=== PATIENT | female | born 1995 | race Caucasian/White ===

== ENCOUNTER 2018-02-03 20:32 | Emergency (ER) | payer OTHER ==
[~2018-02-03] VITALS: Ht 165.1 cm; Wt 51.2 kg
[2018-02-03] MEDS ORDERED: AZIT-57 PO (21:57)
[2018-02-03 22:32] VITALS: BP 118/67
== END 2018-02-03 22:37 | disposition home or self-care (01) ==
LOC: ER 20:33
DX: J20.9 Acute bronchitis, unspecified (principal); J45.909 Unspecified asthma, uncomplicated; F17.200 Nicotine dependence, unspecified, uncomplicated; Z79.899 Other long term (current) drug therapy
CPT/HCPCS: 99283

== ENCOUNTER 2018-03-27 16:07 | Emergency (ER) | payer SELFPAY ==
[~2018-03-27] VITALS: Ht 167.6 cm; Wt 58.0 kg
[2018-03-27 16:12] VITALS: BP 115/68
[2018-03-27 17:04] LABS: CLARITY,URINE CLEAR (Clear); COLOR,URINE YELLOW (Yellow); GLUCOSE, URINE NEGATIVE (Neg); KETONES,URINE NEGATIVE (Neg); LEUKOCYTE ESTERASE ,URINE SMALL (Neg); NITRITES, URINE POSITIVE (Neg); OCCULT BLOOD,URINE TRACE-LYSED (Neg); PH,URINE 6.5 (4.8-8.0); PROTEIN,URINE NEGATIVE (Neg)
[2018-03-27 17:06] LABS: UA COLLECTION TYPE CLN CATCH MIDSTREAM
[2018-03-27 17:16] LABS: BACTERIA,URINE 3+ /HPF (Neg); MUCUS STRANDS FEW /LPF (Neg); SQUAMOUS EPITHELIAL CELL,UR MANY /LPF (FEW)
[2018-03-27 17:17] LABS: RBC,URINE 0-2 /HPF (0-2); WBC,URINE 20-30 /HPF (0-4)
[2018-03-27 17:45] LABS: URINE HCG NEGATIVE (NEG)
== END 2018-03-27 18:26 | disposition left against medical advice (07) ==
LOC: ER 16:07
DX: R39.198 Other difficulties with micturition (principal); Z53.21 Procedure and treatment not carried out due to patient leaving prior to being seen by health care provider
CPT/HCPCS: 81001; 81025; 99281

== ENCOUNTER 2018-04-20 10:31 | Emergency (ER) | payer OTHER ==
[~2018-04-20] VITALS: Ht 167.6 cm; Wt 59.6 kg
[2018-04-20] MEDS ORDERED: naproxen 500mg tablet PO ONE (13:10)
[2018-04-20] MEDS ORDERED: HYDROcodone/acetaminophen 10/325mg tab PO ONE (13:10)
[2018-04-20] MEDS ORDERED: cyclobenzaprine 10mg tablet PO ONE (13:10)
[2018-04-20 14:53] VITALS: BP 125/65
== END 2018-04-20 14:54 | disposition home or self-care (01) ==
LOC: ER 10:32
DX: M62.830 Muscle spasm of back (principal); M54.2 Cervicalgia; M25.511 Pain in right shoulder; F17.200 Nicotine dependence, unspecified, uncomplicated
CPT/HCPCS: 72040; 73030; 99284

== ENCOUNTER 2018-04-21 09:24 | Emergency (ER) | payer OTHER ==
[~2018-04-21] VITALS: Ht 167.6 cm; Wt 59.1 kg
[2018-04-21 09:30] VITALS: BP 119/74
== END 2018-04-21 11:41 | disposition left against medical advice (07) ==
LOC: ER 09:24
DX: M25.511 Pain in right shoulder (principal); Z53.21 Procedure and treatment not carried out due to patient leaving prior to being seen by health care provider

== ENCOUNTER 2018-07-17 12:29 | Emergency (ER) | payer OTHER ==
[~2018-07-17] VITALS: Ht 167.6 cm; Wt 60.0 kg
[2018-07-17 12:32] VITALS: BP 128/62
[2018-07-17] MEDS ORDERED: ketorolac trometh inj. 60 MG/2 ML VIAL IM ONE (13:55)
[2018-07-17] MEDS ORDERED: HYDROcodone/acetaminophen 10/325mg tab PO ONE (13:55)
[2018-07-17] MEDS ORDERED: IBUP-1984 PO (14:53)
== END 2018-07-17 15:37 | disposition home or self-care (01) ==
LOC: ER 12:29
DX: M25.511 Pain in right shoulder (principal); M54.2 Cervicalgia; G89.29 Other chronic pain; J45.909 Unspecified asthma, uncomplicated
CPT/HCPCS: 96372; 99283; J1885

== ENCOUNTER 2018-07-26 14:58 | Emergency (ER) | payer OTHER ==
[~2018-07-26] VITALS: Ht 167.6 cm; Wt 60.0 kg
[~2018-07-26 14:58] MED LIST: IBUP-1984 PO
[2018-07-26 15:02] VITALS: BP 115/57
[2018-07-26] MEDS ORDERED: diazepam 5mg tablet PO ONE (15:25)
[2018-07-26] MEDS ORDERED: ketorolac tromethamine 15mg/ml inj. IM ONE (15:25)
== END 2018-07-26 15:46 | disposition home or self-care (01) ==
LOC: ER 14:59
DX: M54.2 Cervicalgia (principal); M54.6 Pain in thoracic spine; M25.511 Pain in right shoulder; G89.29 Other chronic pain; J45.909 Unspecified asthma, uncomplicated
CPT/HCPCS: 96372; 99284; A4565; J1885

== ENCOUNTER 2018-08-08 12:45 | Emergency (ER) | payer MEDICAID, OTHER ==
[~2018-08-08] VITALS: Ht 167.6 cm; Wt 60.0 kg
[2018-08-08 13:05] VITALS: BP 119/75
[2018-08-08 14:25] LABS: CLARITY,URINE CLEAR (Clear); COLOR,URINE YELLOW (Yellow); GLUCOSE, URINE NEGATIVE (Neg); KETONES,URINE NEGATIVE (Neg); LEUKOCYTE ESTERASE ,URINE NEGATIVE (Neg); NITRITES, URINE NEGATIVE (Neg); OCCULT BLOOD,URINE NEGATIVE (Neg); PH,URINE 6.5 (4.8-8.0); PROTEIN,URINE NEGATIVE (Neg); UROBILINOGEN,URINE 0.2 E.U/dL (0.2-1.0)
[2018-08-08 14:31] LABS: URINE HCG NEGATIVE (NEG)
[2018-08-08 14:39] LABS: BASOPHILS % (AUTO) 0.5 % (0-1); EOSINOPHILS # (AUTO) 0.2 X10'3 (0-0.9); EOSINOPHILS % (AUTO) 2.7 % (0-6); HEMATOCRIT 43.1 % (35.0-45.0); HEMOGLOBIN 14.6 g/dl (12.0-16.0); LYMPHOCYTES # (AUTO) 1.8 X10'3 (1.1-4.8); LYMPHOCYTES % (AUTO) 31.1 % (21-51); MEAN CORPUSCULAR HEMOGLOBIN 30.4 PG (27.0-31.0); MEAN CORPUSCULAR VOLUME 89.4 FL (78-98); MEAN PLATELET VOLUME 8.4 FL (7.4-10.4); MONOCYTES # (AUTO) 0.4 X10'3 (0-0.9); MONOCYTES % (AUTO) 7.3 % (2-12); NEUTROPHILS # (AUTO) 3.3 X10'3 (1.8-7.7); NEUTROPHILS % (AUTO) 58.4 % (42-75); PLATELET COUNT 283 X10'3 (140-440); RED BLOOD COUNT 4.82 X10'6 (4.20-5.60); WHITE BLOOD COUNT 5.8 X10'3 (4.5-11.0)
[2018-08-08 14:41] LABS: UA COLLECTION TYPE CLN CATCH MIDSTREAM
[2018-08-08 14:53] LABS: ALANINE AMINOTRANSFERASE 38 U/L (12-78); ALBUMIN 4.1 G/DL (3.4-5.0); ALBUMIN/GLOBULIN RATIO 1.3 (1.1-1.5); ALKALINE PHOSPHATASE 62 IU/L (20-180); ANION GAP 7 (8-16); ASPARTATE AMINO TRANSFERASE 23 U/L (10-37); BILIRUBIN,TOTAL 0.3 MG/DL (0.1-1.0); BLOOD UREA NITROGEN 15 MG/DL (7-18); BUN/CREATININE RATIO 19.7 (6.6-38.0); CALCIUM 8.6 MG/DL (8.5-10.1); CHLORIDE 106 MMOL/L (99-107); CREATININE 0.76 MG/DL (0.40-0.90); GLUCOSE 72 MG/DL (70-104); POTASSIUM 4.1 MMOL/L (3.5-5.1); SODIUM 143 MMOL/L (135-145); TOTAL CARBON DIOXIDE 29.9 MMOL/L (24-32); TOTAL PROTEIN 7.2 G/DL (6.4-8.2); eGFR > 90 ML/MIN
[2018-08-08] MEDS ORDERED: ONDA4TAB9 SL (15:07)
== END 2018-08-08 15:22 | disposition home or self-care (01) ==
LOC: ER 12:45
DX: B34.9 Viral infection, unspecified (principal); R10.13 Epigastric pain; J45.909 Unspecified asthma, uncomplicated; G89.29 Other chronic pain
CPT/HCPCS: 36415; 80053; 81003; 81025; 85025; 99284

== ENCOUNTER 2020-04-02 10:35 | Emergency (ER) | payer MEDICAID ==
[~2020-04-02] VITALS: Ht 170.2 cm; Wt 64.0 kg
[~2020-04-02 10:35] MED LIST changes: -IBUP-1984 PO; +ORPH100T2 PO
--- NOTE | 2020-04-02 11:18 | NUR ---
Assumed care of patient. Patient in gown and given warm blanket. Patient unable to ambulated to restroom due to pain. Assisted via w/c. Urine sample collected and sent to lab.
[2020-04-02 11:39] LABS: COLOR,URINE YELLOW (Yellow); GLUCOSE, URINE NEGATIVE (Neg); KETONES,URINE NEGATIVE (Neg); LEUKOCYTE ESTERASE ,URINE NEGATIVE (Neg); NITRITES, URINE NEGATIVE (Neg); OCCULT BLOOD,URINE LARGE (Neg); PROTEIN,URINE NEGATIVE (Neg); URINE HCG POSITIVE (NEG); UROBILINOGEN,URINE 0.2 E.U/dL (0.2-1.0)
[2020-04-02 11:40] LABS: CLARITY,URINE Slightly Cloudy (Clear); UA COLLECTION TYPE CLN CATCH MIDSTREAM
[2020-04-02 11:42] LABS: BASOPHILS % (AUTO) 0.5 % (0-1); EOSINOPHILS # (AUTO) 0.1 X10'3 (0-0.9); EOSINOPHILS % (AUTO) 1.8 % (0-6); HEMATOCRIT 42.9 % (35.0-45.0); HEMOGLOBIN 14.5 g/dl (12.0-16.0); LYMPHOCYTES # (AUTO) 1.6 X10'3 (1.1-4.8); MEAN CORPUSCULAR HEMOGLOBIN 30.3 PG (27.0-31.0); MEAN CORPUSCULAR HGB CONC 33.8 g/dL (33.0-36.5); MEAN CORPUSCULAR VOLUME 89.5 FL (78-98); MEAN PLATELET VOLUME 8.1 FL (7.4-10.4); MONOCYTES # (AUTO) 0.4 X10'3 (0-0.9); MONOCYTES % (AUTO) 7.3 % (2-12); NEUTROPHILS # (AUTO) 3.5 X10'3 (1.8-7.7); NEUTROPHILS % (AUTO) 62.4 % (42-75); PLATELET COUNT 220 X10'3 (140-440); RED BLOOD COUNT 4.79 X10'6 (4.20-5.60); RED CELL DISTRIBUTION WIDTH 12.8 % (11.5-14.5); WHITE BLOOD COUNT 5.6 X10'3 (4.5-11.0)
[2020-04-02 11:44] LABS: PARTIAL THROMBOPLASTIN TIME 31 SECONDS (22-32)
[2020-04-02 11:45] LABS: BACTERIA,URINE 2+ /HPF (Neg); SQUAMOUS EPITHELIAL CELL,UR MANY /LPF (FEW); WBC,URINE 0-4 /HPF (0-4)
[2020-04-02 11:46] LABS: ALANINE AMINOTRANSFERASE 20 U/L (12-78); ALBUMIN 4.2 G/DL (3.4-5.0); ALBUMIN/GLOBULIN RATIO 1.4 (1.1-1.5); ALKALINE PHOSPHATASE 57 IU/L (46-116); ANION GAP 8 (8-16); ASPARTATE AMINO TRANSFERASE 16 U/L (10-37); BILIRUBIN,TOTAL 0.5 MG/DL (0.1-1.0); BLOOD UREA NITROGEN 11 MG/DL (7-18); BUN/CREATININE RATIO 14.1 (6.6-38.0); CALCIUM 8.8 MG/DL (8.5-10.1); CHLORIDE 107 MMOL/L (99-107); CREATININE 0.78 MG/DL (0.40-0.90); GLUCOSE 87 MG/DL (70-104); LIPASE 55 U/L (73-393); POTASSIUM 3.9 MMOL/L (3.5-5.1); SODIUM 141 MMOL/L (135-145); TOTAL PROTEIN 7.1 G/DL (6.4-8.2); eGFR > 90 ML/MIN
[2020-04-02 12:31] LABS: BETA HCG,QUANTITATIVE 6462 mIU/ml
--- NOTE | 2020-04-02 13:38 | NUR ---
CALLED [facility] SENT OVER [employer]. TOLD WILL CALL BACK
--- NOTE | 2020-04-02 13:45 | NUR ---
PT ACCEPTED TO [facility] [id number]
[2020-04-02 14:43] VITALS: BP 114/66
== END 2020-04-02 14:46 | disposition short-term general hospital (02) ==
LOC: ER 10:36
DX: O00.202 Left ovarian pregnancy without intrauterine pregnancy (principal); O99.321 Drug use complicating pregnancy, first trimester; F12.90 Cannabis use, unspecified, uncomplicated; G89.29 Other chronic pain; O99.331 Smoking (tobacco) complicating pregnancy, first trimester; O99.511 Diseases of the respiratory system complicating pregnancy, first trimester; J45.909 Unspecified asthma, uncomplicated; R79.1 Abnormal coagulation profile; Z86.69 Personal history of other diseases of the nervous system and sense organs; Z79.899 Other long term (current) drug therapy; Z72.89 Other problems related to lifestyle; Z3A.01 Less than 8 weeks gestation of pregnancy
CPT/HCPCS: 36415; 76805; 76817; 80053; 81001; 81025; 83690; 84702; 85025; 85610; 85730; 99285

== ENCOUNTER 2020-08-13 08:55 | Emergency (ER) | payer MEDICAID ==
[~2020-08-13] VITALS: Ht 167.6 cm; Wt 68.5 kg
[2020-08-13 09:01] VITALS: BP 113/71
[2020-08-13] MEDS ORDERED: HYDROcodone/acetaminophen 5mg/325mg tablet PO ONE (09:30)
[2020-08-13] MEDS ORDERED: CLIN-97 PO (09:31)
[2020-08-13] MEDS ORDERED: HYDR-3965 PO (09:31)
== END 2020-08-13 09:51 | disposition home or self-care (01) ==
LOC: ER 08:55
DX: K08.89 Other specified disorders of teeth and supporting structures (principal); J45.909 Unspecified asthma, uncomplicated; G89.29 Other chronic pain; F12.90 Cannabis use, unspecified, uncomplicated; Z86.69 Personal history of other diseases of the nervous system and sense organs; Z72.89 Other problems related to lifestyle; Z79.899 Other long term (current) drug therapy
CPT/HCPCS: 99283

== ENCOUNTER 2021-01-18 12:41 | Emergency (ER) | payer MEDICAID ==
[~2021-01-18 12:41] MED LIST changes: +CLIN-97 PO
--- NOTE | 2021-01-18 13:30 | NUR ---
Attempted to call patient back for triage, for the third time. Patient was not in lobby. Called listed phone number at which patients and significant others phone numbers were disconnected. Called next of kin and left a voice mail message to see if patient still needed to be seen that she could come back at any point.
--- NOTE | 2021-01-18 13:33 | NUR ---
MD aware of patient having left before triage.
== END 2021-01-18 13:34 | disposition left against medical advice (07) ==
LOC: ER 12:42
DX: O26.891 Other specified pregnancy related conditions, first trimester (principal); R10.31 Right lower quadrant pain; Z3A.00 Weeks of gestation of pregnancy not specified; Z53.21 Procedure and treatment not carried out due to patient leaving prior to being seen by health care provider

== ENCOUNTER 2021-01-20 11:23 | Emergency (ER) | payer MEDICAID ==
[~2021-01-20] VITALS: Ht 165.1 cm; Wt 59.2 kg
[2021-01-20] MEDS ORDERED: normal saline 1000ML IV soln IVB ONE ×2 (11:35→13:45)
[2021-01-20] MEDS ORDERED: morphine 4 MG/ML inj SYRINge IV PRN (11:35)
[2021-01-20] MEDS ORDERED: ondansetron/PF 4mg/2ml inj IV ONE (11:35)
[2021-01-20 12:12] LABS: BASOPHILS % (AUTO) 0.4 % (0-1); EOSINOPHILS # (AUTO) 0.3 X10'3 (0-0.9); EOSINOPHILS % (AUTO) 2.5 % (0-6); HEMATOCRIT 44.3 % (35.0-45.0); HEMOGLOBIN 14.9 g/dl (12.0-16.0); LYMPHOCYTES # (AUTO) 2.3 X10'3 (1.1-4.8); MEAN CORPUSCULAR HEMOGLOBIN 30.2 PG (27.0-31.0); MEAN CORPUSCULAR HGB CONC 33.5 g/dL (33.0-36.5); MEAN CORPUSCULAR VOLUME 90.1 FL (78-98); MONOCYTES # (AUTO) 0.8 X10'3 (0-0.9); NEUTROPHILS # (AUTO) 6.9 X10'3 (1.8-7.7); NEUTROPHILS % (AUTO) 67.1 % (42-75); PLATELET COUNT 326 X10'3 (140-440); RED BLOOD COUNT 4.92 X10'6 (4.20-5.60); RED CELL DISTRIBUTION WIDTH 13.1 % (11.5-14.5); WHITE BLOOD COUNT 10.3 X10'3 (4.5-11.0)
[2021-01-20 12:21] LABS: CLARITY,URINE CLOUDY (Clear); COLOR,URINE YELLOW (Yellow); GLUCOSE, URINE NEGATIVE (Neg); KETONES,URINE NEGATIVE (Neg); LEUKOCYTE ESTERASE ,URINE MODERATE (Neg); NITRITES, URINE NEGATIVE (Neg); OCCULT BLOOD,URINE TRACE-INTACT (Neg); PH,URINE 7.5 (4.8-8.0); PROTEIN,URINE NEGATIVE (Neg)
--- NOTE | 2021-01-20 12:23 | NUR ---
ULTRASOUND AT BEDSIDE
[2021-01-20 12:31] LABS: ALANINE AMINOTRANSFERASE 24 U/L (12-78); ALBUMIN 3.8 G/DL (3.4-5.0); ALBUMIN/GLOBULIN RATIO 1.2 (1.1-1.5); ALKALINE PHOSPHATASE 71 IU/L (46-116); ANION GAP 7 (8-16); ASPARTATE AMINO TRANSFERASE 10 U/L (10-37); BILIRUBIN,TOTAL 0.3 MG/DL (0.1-1.0); BLOOD UREA NITROGEN 9 MG/DL (7-18); BUN/CREATININE RATIO 12.3 (6.6-38.0); CALCIUM 9.3 MG/DL (8.5-10.1); CHLORIDE 107 MMOL/L (99-107); CREATININE 0.73 MG/DL (0.40-0.90); GLUCOSE 107 MG/DL (70-104); POTASSIUM 4.5 MMOL/L (3.5-5.1); SODIUM 141 MMOL/L (135-145); TOTAL CARBON DIOXIDE 27.5 MMOL/L (24-32); TOTAL PROTEIN 6.9 G/DL (6.4-8.2); eGFR > 90 ML/MIN
[2021-01-20 12:46] LABS: UA COLLECTION TYPE CLN CATCH MIDSTREAM
[2021-01-20 12:47] LABS: WBC CLUMPS,URINE MANY /HPF (NEGATIVE)
[2021-01-20 12:48] LABS: BETA HCG,QUANTITATIVE 6937 mIU/ml
[2021-01-20 12:49] LABS: SQUAMOUS EPITHELIAL CELL,UR FEW /LPF (FEW); TRANSITIONAL EPI CELLS,URINE FEW /HPF
[2021-01-20 12:50] LABS: WBC,URINE 50-100 /HPF (0-4)
[2021-01-20 12:56] LABS: BACTERIA,URINE 3+ /HPF (Neg)
[2021-01-20] MEDS ORDERED: CefTRIAXone 2gm/D5W 50ml BAG 50 ML IV ONE (13:55)
[2021-01-20 14:58] LABS: URINE AMPHETAMINE SCREEN NEGATIVE (Neg); URINE BARBITUATE SCREEN NEGATIVE (Neg); URINE BENZODIAZEPINES SCREEN NEGATIVE (Neg); URINE CANNABINOID SCREEN NEGATIVE (Neg); URINE COCAINE SCREEN NEGATIVE (Neg); URINE METHADONE SCREEN NEGATIVE (Neg); URINE OPIATE SCREEN POSITIVE (Neg); URINE PHENCYCLIDINE SCREEN NEGATIVE (Neg)
[2021-01-20 15:13] VITALS: BP 129/78
== END 2021-01-20 15:16 | disposition short-term general hospital (02) ==
LOC: ER 11:23
DX: O00.90 Unspecified ectopic pregnancy without intrauterine pregnancy (principal); Z20.822 Contact with and (suspected) exposure to COVID-19; O26.891 Other specified pregnancy related conditions, first trimester; R10.31 Right lower quadrant pain; O99.511 Diseases of the respiratory system complicating pregnancy, first trimester; J45.909 Unspecified asthma, uncomplicated; G89.29 Other chronic pain; O99.321 Drug use complicating pregnancy, first trimester; F12.90 Cannabis use, unspecified, uncomplicated; Z86.69 Personal history of other diseases of the nervous system and sense organs; Z3A.08 8 weeks gestation of pregnancy; Z79.899 Other long term (current) drug therapy
CPT/HCPCS: 36415; 76801; 80053; 80305; 81001; 84702; 85025; 85610; 86885; 86900; 86901; 87077; 87088; 87186; 87635; 93976; 96361; 96374; 96375; 99291; C9803; J0696; J2270; J2405; J7030; 76802

== ENCOUNTER 2021-01-21 04:32 | Emergency (ER) | payer MEDICAID ==
[~2021-01-21] VITALS: Ht 167.6 cm; Wt 61.4 kg
[2021-01-21] MEDS ORDERED: ondansetron/PF 4mg/2ml inj IV ONE ×2 (04:50→07:25)
[2021-01-21] MEDS ORDERED: acetaminophen 325mg tablet PO ONE (04:50)
[2021-01-21] MEDS ORDERED: normal saline 1000ml 1,000 ML IV ONE (04:50)
[2021-01-21] MEDS ORDERED: morphine 4 MG/ML inj SYRINge IV ONE (04:50)
[2021-01-21 05:17] LABS: BASOPHILS # (AUTO) 0.1 X10'3 (0-0.2); BASOPHILS % (AUTO) 0.4 % (0-1); EOSINOPHILS # (AUTO) 0.1 X10'3 (0-0.9); EOSINOPHILS % (AUTO) 0.4 % (0-6); HEMATOCRIT 39.5 % (35.0-45.0); HEMOGLOBIN 13.3 g/dl (12.0-16.0); LYMPHOCYTES % (AUTO) 6.4 % (21-51); MEAN CORPUSCULAR HGB CONC 33.6 g/dL (33.0-36.5); MEAN CORPUSCULAR VOLUME 89.3 FL (78-98); MONOCYTES # (AUTO) 0.5 X10'3 (0-0.9); NEUTROPHILS # (AUTO) 14.2 X10'3 (1.8-7.7); NEUTROPHILS % (AUTO) 89.8 % (42-75); PLATELET COUNT 320 X10'3 (140-440); RED BLOOD COUNT 4.42 X10'6 (4.20-5.60); WHITE BLOOD COUNT 15.8 X10'3 (4.5-11.0)
[2021-01-21 05:37] LABS: ALANINE AMINOTRANSFERASE 24 U/L (12-78); ALBUMIN 3.6 G/DL (3.4-5.0); ALBUMIN/GLOBULIN RATIO 1.2 (1.1-1.5); ALKALINE PHOSPHATASE 63 IU/L (46-116); ANION GAP 10 (8-16); ASPARTATE AMINO TRANSFERASE 13 U/L (10-37); BILIRUBIN,TOTAL 0.3 MG/DL (0.1-1.0); BLOOD UREA NITROGEN 9 MG/DL (7-18); BUN/CREATININE RATIO 10.5 (6.6-38.0); CHLORIDE 105 MMOL/L (99-107); CREATININE 0.86 MG/DL (0.40-0.90); GLUCOSE 148 MG/DL (70-104); POTASSIUM 4.1 MMOL/L (3.5-5.1); SODIUM 137 MMOL/L (135-145); TOTAL CARBON DIOXIDE 22.5 MMOL/L (24-32); TOTAL PROTEIN 6.7 G/DL (6.4-8.2); eGFR 82 ML/MIN
[2021-01-21 05:48] LABS: CLARITY,URINE CLEAR (Clear); COLOR,URINE YELLOW (Yellow); GLUCOSE, URINE NEGATIVE (Neg); KETONES,URINE NEGATIVE (Neg); LEUKOCYTE ESTERASE ,URINE TRACE (Neg); NITRITES, URINE NEGATIVE (Neg); OCCULT BLOOD,URINE TRACE-INTACT (Neg); PH,URINE 6.5 (4.8-8.0); PROTEIN,URINE NEGATIVE (Neg); URINE AMPHETAMINE SCREEN NEGATIVE (Neg); URINE BARBITUATE SCREEN NEGATIVE (Neg); URINE BENZODIAZEPINES SCREEN NEGATIVE (Neg); URINE CANNABINOID SCREEN NEGATIVE (Neg); URINE COCAINE SCREEN NEGATIVE (Neg); URINE METHADONE SCREEN NEGATIVE (Neg); URINE OPIATE SCREEN POSITIVE (Neg); URINE PHENCYCLIDINE SCREEN NEGATIVE (Neg); UROBILINOGEN,URINE 0.2 E.U/dL (0.2-1.0)
[2021-01-21 05:53] LABS: UA COLLECTION TYPE STRAIGHT CATH
[2021-01-21 05:55] LABS: RBC,URINE 0-2 /HPF (0-2); WBC,URINE 50-100 /HPF (0-4)
[2021-01-21 05:56] LABS: BACTERIA,URINE NONE SEEN /HPF (Neg); MUCUS STRANDS NONE SEEN /LPF (Neg); SQUAMOUS EPITHELIAL CELL,UR FEW /LPF (FEW)
[2021-01-21 06:01] LABS: BETA HCG,QUANTITATIVE 4006 mIU/ml
[2021-01-21] MEDS ORDERED: normal saline 1000ML IV soln IVB ONE (07:25)
[2021-01-21 07:40] VITALS: BP 115/76
[2021-01-21] MEDS: morphine 4 MG/ML inj SYRINge IV PRN ×4 (07:43→12:29)
[2021-01-21] MEDS ORDERED: LIDOcaine 2% 10ml TOPICAL JELLY (Urojet) TP ONE (08:10)
[2021-01-21] MEDS ORDERED: CefTRIAXone 2gm/D5W 50ml BAG 50 ML IV ONE (11:10)
== END 2021-01-21 12:38 | disposition short-term general hospital (02) ==
LOC: ER 04:33
DX: O26.91 Pregnancy related conditions, unspecified, first trimester (principal); J45.909 Unspecified asthma, uncomplicated; G89.29 Other chronic pain; F17.200 Nicotine dependence, unspecified, uncomplicated; F12.90 Cannabis use, unspecified, uncomplicated; Z3A.01 Less than 8 weeks gestation of pregnancy; Z86.69 Personal history of other diseases of the nervous system and sense organs; Z72.89 Other problems related to lifestyle; Z79.2 Long term (current) use of antibiotics; Z79.899 Other long term (current) drug therapy
CPT/HCPCS: 36415; 51702; 76801; 76817; 80053; 80305; 81001; 84145; 84702; 85025; 87088; 96361; 96365; 96375; 96376; 99285; J0696; J2270; J2405; J7030

== ENCOUNTER 2021-04-26 11:08 | Emergency (ER) | payer MEDICAID ==
[~2021-04-26] VITALS: Ht 170.2 cm; Wt 59.1 kg
[2021-04-26 11:12] VITALS: BP 109/71
[2021-04-26] MEDS ORDERED: HYDROcodone/acetaminophen 5mg/325mg tablet PO ONE (11:55)
[2021-04-26] MEDS ORDERED: LORazepam 1 MG tablet PO ONE (11:55)
[2021-04-26 12:15] LABS: BASOPHILS # (AUTO) 0.1 X10'3 (0-0.2); BASOPHILS % (AUTO) 0.8 % (0-1); EOSINOPHILS # (AUTO) 0.1 X10'3 (0-0.9); EOSINOPHILS % (AUTO) 1.5 % (0-6); HEMATOCRIT 40.9 % (35.0-45.0); HEMOGLOBIN 13.7 g/dl (12.0-16.0); LYMPHOCYTES # (AUTO) 1.8 X10'3 (1.1-4.8); LYMPHOCYTES % (AUTO) 20.6 % (21-51); MEAN CORPUSCULAR HEMOGLOBIN 28.2 PG (27.0-31.0); MEAN CORPUSCULAR HGB CONC 33.4 g/dL (33.0-36.5); MEAN CORPUSCULAR VOLUME 84.3 FL (78-98); MEAN PLATELET VOLUME 7.9 FL (7.4-10.4); MONOCYTES # (AUTO) 0.8 X10'3 (0-0.9); MONOCYTES % (AUTO) 8.8 % (2-12); NEUTROPHILS # (AUTO) 5.8 X10'3 (1.8-7.7); NEUTROPHILS % (AUTO) 68.3 % (42-75); PLATELET COUNT 253 X10'3 (140-440); RED BLOOD COUNT 4.86 X10'6 (4.20-5.60); RED CELL DISTRIBUTION WIDTH 14.2 % (11.5-14.5); WHITE BLOOD COUNT 8.5 X10'3 (4.5-11.0)
[2021-04-26 12:31] LABS: ALANINE AMINOTRANSFERASE 41 U/L (12-78); ALBUMIN 3.8 G/DL (3.4-5.0); ALBUMIN/GLOBULIN RATIO 1.2 (1.1-1.5); ALKALINE PHOSPHATASE 71 IU/L (46-116); ANION GAP 8 (8-16); ASPARTATE AMINO TRANSFERASE 50 U/L (10-37); BILIRUBIN,TOTAL 0.9 MG/DL (0.1-1.0); BLOOD UREA NITROGEN 17 MG/DL (7-18); BUN/CREATININE RATIO 25.4 (6.6-38.0); CALCIUM 8.7 MG/DL (8.5-10.1); CHLORIDE 105 MMOL/L (99-107); CREATININE 0.67 MG/DL (0.40-0.90); GLUCOSE 111 MG/DL (70-104); POTASSIUM 3.7 MMOL/L (3.5-5.1); SODIUM 138 MMOL/L (135-145); TOTAL CARBON DIOXIDE 25.4 MMOL/L (24-32); TOTAL PROTEIN 6.9 G/DL (6.4-8.2); eGFR > 90 ML/MIN
[2021-04-26] MEDS ORDERED: metroNIDAZOLE 500mg tablet PO ONE (12:45)
[2021-04-26] MEDS ORDERED: azithromycin 250mg tablet PO ONE (12:45)
[2021-04-26] MEDS ORDERED: CefTRIAXone 250MG IM Kit w/LIDOcaine IM ONE (12:45)
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
--- NOTE | 2021-04-26 14:18 | NUR ---
Discharge instructions reviewed with patient and patient verbalized understanding. Patient encouraged to come back to the hospital if she decides she would like to have a medical-forensic exam. Patient discharged back to long term with [facility] at 1430. Patient was taken to [facility] vehicle via wheelchair.
== END 2021-04-26 14:30 | disposition home or self-care (01) ==
LOC: EEVIPCON 11:09 → ER 11:09
DX: T74.21XA Adult sexual abuse, confirmed, initial encounter (principal); S40.022A Contusion of left upper arm, initial encounter; S50.02XA Contusion of left elbow, initial encounter; S60.211A Contusion of right wrist, initial encounter; S80.11XA Contusion of right lower leg, initial encounter; S60.812A Abrasion of left wrist, initial encounter; M25.462 Effusion, left knee; R07.89 Other chest pain; Y04.8XXA Assault by other bodily force, initial encounter; Y93.89 Activity, other specified; Y92.89 Other specified places as the place of occurrence of the external cause; Y99.8 Other external cause status
CPT/HCPCS: 36415; 71045; 73080; 73110; 73564; 80053; 85025; 96372; 99284; J0696; 99283; J3490

== ENCOUNTER 2021-10-22 14:53 | Emergency (ER) | payer MEDICAID ==
[~2021-10-22] VITALS: Ht 167.6 cm; Wt 59.1 kg
[2021-10-22 15:10] VITALS: BP 136/94
[2021-10-22] MEDS ORDERED: naproxen 500mg tablet PO ONE (15:35)
[2021-10-22] MEDS ORDERED: amox tr/potassium clavulanate 875/125mg TAB PO ONE (15:35)
[2021-10-22] MEDS ORDERED: HYDROcodone/acetaminophen 10/325mg tab PO ONE ×2 (15:35→17:50)
[2021-10-22] MEDS ORDERED: LIDOcaine 1% W/epiNEPHrine 1:200,000 10ml vial IJ ONE (15:35)
[2021-10-22] MEDS ORDERED: LIDOcaine 1% W/epiNEPHrine 1:100,000 20ml vial IJ ONE (15:40)
--- NOTE | 2021-10-22 15:46 | NUR ---
Patient unable to give urine sample at this time.
[2021-10-22 17:09] LABS: HCG SERUM QL NEGATIVE
[2021-10-22] MEDS ORDERED: AMOX-422 PO (17:44)
[2021-10-22] MEDS ORDERED: LORazepam 1 MG tablet PO ONE (17:50)
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
== END 2021-10-22 19:08 ==
LOC: ER 14:53
DX: Z00.8 Encounter for other general examination (principal); S41.111A Laceration without foreign body of right upper arm, initial encounter; S51.011A Laceration without foreign body of right elbow, initial encounter; J45.909 Unspecified asthma, uncomplicated; G89.29 Other chronic pain; F12.90 Cannabis use, unspecified, uncomplicated; F15.90 Other stimulant use, unspecified, uncomplicated; Z86.69 Personal history of other diseases of the nervous system and sense organs; Z72.89 Other problems related to lifestyle; Z79.2 Long term (current) use of antibiotics; Z79.899 Other long term (current) drug therapy; X58.XXXA Exposure to other specified factors, initial encounter; Y93.89 Activity, other specified; Y92.89 Other specified places as the place of occurrence of the external cause; Y99.8 Other external cause status
CPT/HCPCS: 12002; 36415; 73060; 73090; 84703; 99284